=== PATIENT | female | born 1955 ===

== ENCOUNTER 2022-05-08 11:02 | Emergency (ER) | payer OTHER ==
[2022-05-08] MEDS: Albuterol 6.7 GM Inhaler INH ONE (11:07)
== END 2022-05-08 11:45 | disposition home or self-care (01) ==
LOC: LL.ED 11:02
DX: J43.9 Emphysema, unspecified (principal); Z76.0 Encounter for issue of repeat prescription; I10 Essential (primary) hypertension; E78.00 Pure hypercholesterolemia, unspecified; K21.9 Gastro-esophageal reflux disease without esophagitis; F17.200 Nicotine dependence, unspecified, uncomplicated; E66.9 Obesity, unspecified; Z68.32 Body mass index [BMI] 32.0-32.9, adult; Z88.5 Allergy status to narcotic agent; Z79.899 Other long term (current) drug therapy
CPT/HCPCS: 99281; 99284; A9270-GY